=== PATIENT | female | born 1935 | race Caucasian/White ===

== ENCOUNTER → 2016-11-19 | Outpatient (CLI) | payer MEDICARE ==
--- NOTE | 2016-11-19 19:51 | Diagnostic Imaging Report ---
INDICATION: Digital mammogram bilateral screening. This study was compared to the prior exams of 11/07/15, 10/25/14 and 10/12/13. At this time, there are no current complaints. The current study was also evaluated with a Computer Aided Detection (CAD) system. FINDINGS: The fibroglandular tissue in both breasts is heterogeneously dense. This does limit the sensitivity of this exam. Overall, there does not appear to have been any significant change when compared to the prior study. No primary or secondary sign of malignancy is noted. IMPRESSION: There is no radiographic evidence for malignancy. ACR BI-RADS Category 1: Negative. Result letter will be mailed to the patient. Note: At least 10% of breast cancer is not imaged by mammography. Dictated by: Dictated on workstation # [id number]
== END ==
LOC: RAD 09:51
PROVIDERS: ATTEND Internal Medicine
DX: Z12.31 Encounter for screening mammogram for malignant neoplasm of breast (principal)

== ENCOUNTER → 2017-11-25 | Outpatient (CLI) | payer MEDICARE ==
--- NOTE | 2017-11-25 15:58 | Diagnostic Imaging Report ---
Indication: Routine screening. Comparison: Comparison is made with prior exam from 11/19/2016 and 11/07/2015. Findings: Scattered fibroglandular densities are identified in both breasts. The parenchymal pattern is stable. No dominant mass or malignant-appearing microcalcifications are seen. The axillae are unremarkable. Impression: BI-RAD category 1. No mammographic features suspicious for malignancy are identified. ACR BI-RADS Category 1: Negative. Result letter will be mailed to the patient. Note: At least 10% of breast cancer is not imaged by mammography. Dictated by: Dictated on workstation # [id number]
== END ==
LOC: RAD 14:51
PROVIDERS: ATTEND Internal Medicine
DX: Z12.31 Encounter for screening mammogram for malignant neoplasm of breast (principal)
CPT/HCPCS: 77067

== ENCOUNTER → 2018-12-09 | Outpatient (CLI) | payer MEDICARE ==
--- NOTE | 2018-12-09 16:21 | Diagnostic Imaging Report ---
INDICATION: Routine screening. COMPARISON: 11/25/2017 and 11/19/2016. TECHNIQUE: 2D and 3D bilateral screening mammography was performed with CAD. FINDINGS: Scattered fibroglandular densities are identified bilaterally. The parenchymal pattern is stable. No mass or malignant appearing microcalcifications are seen. The axillae are unremarkable. IMPRESSION: No mammographic features suspicious for malignancy are identified. ACR BI-RADS Category 1: Negative. Result letter will be mailed to the patient. Note: At least 10% of breast cancer is not imaged by mammography. Dictated by: Dictated on workstation # [id number]
== END ==
LOC: RAD 12:38
PROVIDERS: ATTEND Internal Medicine
DX: Z12.31 Encounter for screening mammogram for malignant neoplasm of breast (principal)
CPT/HCPCS: 77067

== ENCOUNTER → 2019-12-14 | Outpatient (CLI) | payer MEDICARE ==
--- NOTE | 2019-12-14 11:45 | Diagnostic Imaging Report ---
INDICATION: Screening. The current study was also evaluated with a Computer Aided Detection (CAD) system. 3-D Tomographic imaging was also performed. COMPARISON: Comparison made with prior examinations from 12/09/2018, 11/25/2017, and 11/19/2016. FINDINGS: There are scattered fibroglandular densities bilaterally. There is no dominant mass, spiculated lesion, or suspicious calcification identified. The skin, nipples, and axillae are unremarkable. IMPRESSION: Negative. ACR BI-RADS Category 1: Negative. Result letter will be mailed to the patient. Note: At least 10% of breast cancer is not imaged by mammography. Dictated by: Dictated on workstation # [id number]
== END ==
LOC: RAD 10:36
PROVIDERS: ATTEND Internal Medicine
DX: Z12.31 Encounter for screening mammogram for malignant neoplasm of breast (principal)
CPT/HCPCS: 77067

== ENCOUNTER 2020-10-16 17:16 | Emergency (ER) | payer MEDICARE ==
[~2020-10-16] VITALS: Ht 152 cm; Wt 65.0 kg
--- NOTE | 2020-10-16 17:45 | ED Fall/Injury ---
General Chief Complaint: Trauma-Non Activation Stated Complaint: FALL Nursing Triage Note: MISSED STEP AT HOME AND FELL ON BUTTOCKS. SEE TRIAGE NOTE. Source: patient, EMS History of Present Illness Date Seen by Provider: Oct 16, 2020 Time Seen by Provider: 17:38 Initial Comments 84-year-old female presenting with EMS after missing a step at home and falling back on her buttocks. She states that she had the back of her head and back as well. She does have chronic low back pain anyway. She also has pain in her right hand where she tried to catch herself. She has an abrasion and break in the skin on her right ring finger and has pain in that finger. There is bruising and swelling. She denies any nausea or vomiting. She was able to stand back up after the fall. She has had no numbness or tingling in her legs or arms. She denies any loss of vision or loss of consciousness. She has no drainage from her nose or ears. She denies any shortness of breath. Location Injury Occurred: HOME Allergies and Home Medications Allergies Coded Allergies: codeine (Verified Allergy, Unknown, 10/16/20) morphine (Verified Allergy, Unknown, 10/16/20) Patient Home Medication List Home Medication List Reviewed: Yes Review of Systems Review of Systems Constitutional: No chills, No dizziness, No fever Eyes: Denies Blindness, Denies Blurred Vision, Denies Drainage, Denies Tunnel Vision, Denies Vision Changes Ears, Nose, Mouth, Throat: denies ear pain, denies ear discharge, denies nose discharge, denies epistaxis, denies mouth swelling, denies loose teeth Respiratory: No cough, No short of breath, No stridor Cardiovascular: No chest pain Gastrointestinal: No abdominal pain, No nausea, No vomiting Genitourinary: no symptoms reported Musculoskeletal: back pain (acute on chronic low back pain since falling, thoracic back pain since fall), other (pain and swelling or right ring finger with abrasion since fall) Skin: other (abrasion with bruising to right ring finger) Psychiatric/Neurological: Headache (occiput); Denies Numbness, Denies Paresthesia Past Dxjgwqd-Apkisf-Qwwgbx Hx Past Med/Social Hx: Reviewed Nursing Past Med/Soc Hx Patient Social History Alcohol Use: Denies Use Recreational Drug Use: No Smoking Status: Never a Smoker 2nd Hand Smoke Exposure: No Recent Foreign Travel: No Contact w/Someone Who Travel: No Recent Infectious Disease Expo: No Recent Hopitalizations: No Physical Abuse: No Sexual Abuse: No Mistreated: No Fear: No Seasonal Allergies Seasonal Allergies: No Past Medical History Respiratory: No Cardiac: Yes Hypertension Neurological: No Physical Exam Vital Signs Vital Signs - First Documented 10/16/20 17:33 Temp 36.5 Pulse 71 Resp 16 B/P (MAP) 158/50 (86) Pulse Ox 100 O2 Delivery Room Air Capillary Refill : Less Than 3 Seconds Height, Weight, BMI Height: '" Weight: lbs. oz. kg; 28.00 BMI Method: General Appearance: WD/WN, mild distress HEENT: PERRL/EOMI, pharynx normal, other (no kirkland sign, raccoon sign. No CSF otorrhea, rhinorrhea) Neck: full range of motion, supple Cardiovascular: normal peripheral pulses, regular rate, rhythm Respiratory: chest non-tender, lungs clear, normal breath sounds Gastrointestinal: normal bowel sounds, soft, no pulsatile mass Back: no CVA tenderness, vertebral tenderness (thoracic, lower lumbar and sacral area) Extremities: normal capillary refill, other (pain and swelling with abrasion to right ring finger. 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, alert, oriented x 3 Skin: warm/dry, ecchymosis (right ring finger) Xavier Coma Score Best Eye Response: (4) Open Spontaneously Best Verbal Response: (5) Oriented Best Motor Response: (6) Obeys Commands Xavier Total: 15 Progress/Results/Core Measures Results/Orders My Orders Orders - GREGORY KAUR MD Ketorolac Injection (Toradol Injection) (10/16/20 18:03) Ct Head/Cervical Spine Wo (10/16/20 18:03) Ct Thoracic/Lumbar Spine Wo (10/16/20 18:03) Ct Pelvis Wo (10/16/20 18:03) Hand 3 View Right (10/16/20 18:04) Ed Ortho/Other Supplies Order (10/16/20 19:13) Vital Signs/I&O 10/16/20 10/16/20 17:33 18:09 Temp 36.5 36.5 Pulse 71 Resp 16 B/P (MAP) 158/50 (86) Pulse Ox 100 O2 Delivery Room Air Blood Pressure Mean: 86 Progress Progress Note #1: Progress Note toradol 30 mg IM for pain, ice, CT scan head, cervical, thoracic, lumbar spine and pelvis. hand xray to evaluate the right ring finger Progress Note #2: Progress Note on recheck of patient she reports improved pain after Toradol. I advised her of the fracture of the middle phalanx of right ring finger. The CT scans did not show any acute process other than she had a small fracture of the tip of the Coccyx. Counseled on follow up and return precautions. Advised to try and keep stools soft and regular and take miralax or milk of magnesia to help with stools. pt states she will take tylenol for pain. anything stronger upsets her stomach. She has walker at home if needed. given info for Dr. Ding and Surinder Salgado if needed for follow up. Diagnostic Imaging Diagonstic Imaging: CT Plain Films/CT/US/NM/MRI: c-spine, head Comments NAME: RYAN HEATH [facility] REC#: [id number] PT STATUS: REG ER : 1935 PHYSICIAN: GREGORY KAUR MD ADMIT DATE: 10/16/20/ER FS Draft Date of Exam:10/16/20 CT HEAD/CERVICAL SPINE WO PROCEDURE: CT head and CT cervical spine without contrast. TECHNIQUE: Multiple contiguous axial images were obtained through the brain and cervical spine without the use of intravenous contrast. Sagittal and coronal reformations through the cervical spine were then performed. Auto Exposure Controls were utilized during the CT exam to meet ALARA standards for radiation dose reduction. INDICATION: Head and neck pain after fall. FINDINGS: There is prominence of the ventricles and sulci. There is some chronic microvascular ischemic disease. There is no hydrocephalus. There is no midline shift. There is no mass, hemorrhage or extra-axial fluid collection. Calvarium is intact. The sinuses and mastoid air cells are clear. There is some degenerative scoliosis of the cervical spine. This is right convexity in the lower cervical spine and left in the upper. There is no fracture or traumatic subluxation. The odontoid is intact. The lateral masses are well aligned. The prevertebral soft tissues are within normal limits. The lung apices are clear. IMPRESSION: 1. Atrophy and some chronic microvascular ischemic disease; however, no acute intracranial abnormality. 2. Severe cervical spondylosis and multilevel degenerative disc disease, as described, without acute fracture or traumatic subluxation. Dictated on workstation # [id number] Dict: 10/16/201857 Trans: 10/16/201907 [id number] Interpreted by: MANDIE YBARRA MD Electronically signed by: Diagonstic Imaging: CT Plain Films/CT/US/NM/MRI: other (Thoracic and Lumbar Spine) Comments [facility] [place] NAME: RYAN HEATH [facility] REC#: [id number] PT STATUS: REG ER : 1935 PHYSICIAN: GREGORY KAUR MD ADMIT DATE: 10/16/20/ER FS Signed Date of Exam:10/16/20 CT THORACIC/LUMBAR SPINE WO PROCEDURE: CT thoracic and lumbar spine without contrast. TECHNIQUE: Multiple contiguous axial images were obtained through the thoracic and lumbar spine without the use of intravenous contrast. Sagittal and coronal reformations were then performed. All CT scans use one or more of the following dose optimizing techniques: automated exposure control, MA and/or KvP adjustment based on patient size and exam type or iterative reconstruction. INDICATION: Pain after fall. FINDINGS: CT thoracic spine: Bones are osteopenic. The alignment of the thoracic spine is grossly normal. Vertebral body heights are well maintained. There is no fracture or traumatic subluxation. There is no bony encroachment on the spinal canal. There are diffuse degenerative changes. There is a calcified granuloma in the left upper lobe. There is some chronic interstitial fibrosis in the lung bases as well as a bleb in the left lung base. IMPRESSION: Osteopenia and mild thoracic spondylosis, otherwise unremarkable. CT lumbar spine: There are chronic pars defects at L5 with grade 2 spondylolisthesis of L5 on S1. There is multilevel degenerative disc disease. The vertebral body heights are well maintained. There is lower lumbar hypertrophic degenerative facet disease. There is no other acute fracture or traumatic subluxation. The abdominal aorta is nonaneurysmal. There is a 4 mm nonobstructing stone in the right kidney. IMPRESSION: 1. 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 2. Otherwise moderate lumbar spondylosis without acute fracture 3. 4 mm nonobstructing right renal calculus. Dictated by: Dictated on workstation # [id number] Dict: 10/16/201907 Trans: 10/16/201934 [facility] [phone] Interpreted by: MANDIE YBARRA MD Electronically signed by: MANDIE YBARRA MD 10/16/201934 Diagonstic Imaging: CT Plain Films/CT/US/NM/MRI: pelvis Comments [facility] [place] [facility] [id number] PT STATUS: REG ER : 1935 PHYSICIAN: GREGORY KAUR MD ADMIT DATE: 10/16/20/ER FS Signed Date of Exam:10/16/20 CT PELVIS WO PROCEDURE: CT pelvis without contrast. TECHNIQUE: Multiple contiguous axial images were obtained through the pelvis without the use of intravenous contrast. Sagittal and coronal reformations were performed. Auto Exposure Controls were utilized during the CT exam to meet ALARA standards for radiation dose reduction. INDICATION: Pain after fall. FINDINGS: There is a slightly displaced fracture through the coccyx. There is bilateral spondylolysis at L5 with grade 2 spondylolisthesis. There is no other fracture or dislocation. Proximal femurs are intact. There is no focal soft tissue abnormality. IMPRESSION: 1. Slightly displaced fracture through the distal coccyx. The distal fragments are displaced anteriorly. 2. Bilateral spondylolysis at L5 which appears chronic with grade 2 spondylolisthesis. 3. No other fracture or dislocation. Dictated by: Dictated on workstation # [id number] Dict: 10/16/201906 Trans: 10/16/201934 [facility] [id number] Interpreted by: MANDIE YBARRA MD Electronically signed by: MANDIE YBARRA MD 10/16/201934 Diagonstic Imaging: Xray Plain Films/CT/US/NM/MRI: hand Comments [facility] [place] [place] NAME: RYAN HEATH [facility] REC#: [id number] PT STATUS: REG ER : 1935 PHYSICIAN: GREGORY KAUR MD ADMIT DATE: 10/16/20/ER FS Signed Date of Exam:10/16/20 HAND 3 VIEW RIGHT INDICATION: Pain after fall to distal right ring finger. FINDINGS: There is a minimally displaced fracture involving the diaphysis of the middle phalanx of the right 4th finger. There is marked degenerative changes of the DIP and PIP joints. Bones are osteopenic. There is no other fracture or dislocation. IMPRESSION: 1. Comminuted minimally displaced fracture involving the diaphysis of the middle phalanx of the right 4th finger. 2. Osteopenia and diffuse degenerative change, particularly in the DIP and to a lesser degree PIP joints. Dictated by: Dictated on workstation # [id number] Dict: 10/16/201910 Trans: 10/16/201934 [facility] [id number] Interpreted by: MANDIE YBARRA MD Electronically signed by: MANDIE YBARRA MD 10/16/201934 Departure Impression Primary Impression: Displaced fracture of middle phalanx of right ring finger, initial encounter for closed fracture Additional Impressions: Fracture of coccyx, initial encounter for closed fracture Fall at home Qualified Codes: W19.XXXA - Unspecified fall, initial encounter; Y92.009 - Unspecified place in unspecified non-institutional (private) residence as the place of occurrence of the external cause Contusion of scalp, initial encounter Abrasion of right ring finger, initial encounter Disposition: 01 HOME, SELF-CARE Condition: Stable Departure-Patient Inst. Decision time for Depature: 19:44 Referrals: LAURA AARON MD (PCP/Family) Primary Care Physician JAMES DING MD Patient Instructions: Finger Fracture ED, Coccyx Fracture (DC), Abrasions ED, Minor Contusion ED, Preventing Falls in the Older Adult Add. Discharge Instructions: Use ice 20-30 minutes every few hours as needed for your finger, tailbone and head to help with pain, bruising, inflammation and swelling. Elevate your hand above heart level when you can to help with bruising, swelling and pain. Use splint and bethany taping to middle finger to help support the ring finger and the fracture of your finger as it heals. If you are having a lot of pain when walking you can use a walker for weight bearing as tolerated to help you walk. If still having pain or more problems then you can follow up with Dr. Aaron or with Orthopedics, Dr. Ding or his assistant department manager AMIRA Salgado. You may call to make an appointment with AMIRA Salgado here in [place] at [facility] by calling [phone] All discharge instructions reviewed with patient and/or family. Voiced understanding. GREGORY KAUR MD Oct 16, 2020 17:44
[2020-10-16] MEDS ORDERED: KETOROLAC 30 MG/ML VIAL IM STA (18:03)
--- NOTE | 2020-10-16 19:08 | Diagnostic Imaging Report ---
PROCEDURE: CT head and CT cervical spine without contrast. TECHNIQUE: Multiple contiguous axial images were obtained through the brain and cervical spine without the use of intravenous contrast. Sagittal and coronal reformations through the cervical spine were then performed. Auto Exposure Controls were utilized during the CT exam to meet ALARA standards for radiation dose reduction. INDICATION: Head and neck pain after fall. FINDINGS: There is prominence of the ventricles and sulci. There is some chronic microvascular ischemic disease. There is no hydrocephalus. There is no midline shift. There is no mass, hemorrhage or extra-axial fluid collection. Calvarium is intact. The sinuses and mastoid air cells are clear. There is some degenerative scoliosis of the cervical spine. This is right convexity in the lower cervical spine and left in the upper. There is no fracture or traumatic subluxation. The odontoid is intact. The lateral masses are well aligned. The prevertebral soft tissues are within normal limits. The lung apices are clear. IMPRESSION: 1. Atrophy and some chronic microvascular ischemic disease; however, no acute intracranial abnormality. 2. Severe cervical spondylosis and multilevel degenerative disc disease, as described, without acute fracture or traumatic subluxation. Dictated by: Dictated on workstation # [id number]
--- NOTE | 2020-10-16 19:18 | Diagnostic Imaging Report ---
PROCEDURE: CT pelvis without contrast. TECHNIQUE: Multiple contiguous axial images were obtained through the pelvis without the use of intravenous contrast. Sagittal and coronal reformations were performed. Auto Exposure Controls were utilized during the CT exam to meet ALARA standards for radiation dose reduction. INDICATION: Pain after fall. FINDINGS: There is a slightly displaced fracture through the coccyx. There is bilateral spondylolysis at L5 with grade 2 spondylolisthesis. There is no other fracture or dislocation. Proximal femurs are intact. There is no focal soft tissue abnormality. IMPRESSION: 1. Slightly displaced fracture through the distal coccyx. The distal fragments are displaced anteriorly. 2. Bilateral spondylolysis at L5 which appears chronic with grade 2 spondylolisthesis. 3. No other fracture or dislocation. Dictated by: Dictated on workstation # [id number]
--- NOTE | 2020-10-16 19:23 | Diagnostic Imaging Report ---
PROCEDURE: CT thoracic and lumbar spine without contrast. TECHNIQUE: Multiple contiguous axial images were obtained through the thoracic and lumbar spine without the use of intravenous contrast. Sagittal and coronal reformations were then performed. All CT scans use one or more of the following dose optimizing techniques: automated exposure control, MA and/or KvP adjustment based on patient size and exam type or iterative reconstruction. INDICATION: Pain after fall. FINDINGS: CT thoracic spine: Bones are osteopenic. The alignment of the thoracic spine is grossly normal. Vertebral body heights are well maintained. There is no fracture or traumatic subluxation. There is no bony encroachment on the spinal canal. There are diffuse degenerative changes. There is a calcified granuloma in the left upper lobe. There is some chronic interstitial fibrosis in the lung bases as well as a bleb in the left lung base. IMPRESSION: Osteopenia and mild thoracic spondylosis, otherwise unremarkable. CT lumbar spine: There are chronic pars defects at L5 with grade 2 spondylolisthesis of L5 on S1. There is multilevel degenerative disc disease. The vertebral body heights are well maintained. There is lower lumbar hypertrophic degenerative facet disease. There is no other acute fracture or traumatic subluxation. The abdominal aorta is nonaneurysmal. There is a 4 mm nonobstructing stone in the right kidney. IMPRESSION: 1. 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 2. Otherwise moderate lumbar spondylosis without acute fracture 3. 4 mm nonobstructing right renal calculus. Dictated by: Dictated on workstation # [id number]
--- NOTE | 2020-10-16 19:26 | Diagnostic Imaging Report ---
INDICATION: Pain after fall to distal right ring finger. FINDINGS: There is a minimally displaced fracture involving the diaphysis of the middle phalanx of the right 4th finger. There is marked degenerative changes of the DIP and PIP joints. Bones are osteopenic. There is no other fracture or dislocation. IMPRESSION: 1. Comminuted minimally displaced fracture involving the diaphysis of the middle phalanx of the right 4th finger. 2. Osteopenia and diffuse degenerative change, particularly in the DIP and to a lesser degree PIP joints. Dictated by: Dictated on workstation # [id number]
[2020-10-16 19:46] VITALS: BP 160/49
== END 2020-10-16 19:47 | disposition home or self-care (01) ==
LOC: EDUNIT# 17:16 → ER FS 17:17
DX: S62.624A Displaced fracture of middle phalanx of right ring finger, initial encounter for closed fracture (principal); S32.2XXA Fracture of coccyx, initial encounter for closed fracture; S00.03XA Contusion of scalp, initial encounter; R40.2410 Glasgow coma scale score 13-15, unspecified time; Z88.5 Allergy status to narcotic agent; W10.9XXA Fall (on) (from) unspecified stairs and steps, initial encounter; Y92.009 Unspecified place in unspecified non-institutional (private) residence as the place of occurrence of the external cause
CPT/HCPCS: 29130; 70450; 72125; 72128; 72131; 72192; 73130

== ENCOUNTER → 2021-01-17 | Outpatient (CLI) | payer MEDICARE ==
--- NOTE | 2021-01-17 11:41 | Diagnostic Imaging Report ---
INDICATION: Routine screening. Comparison is made with prior mammogram 12/14/2019 and 12/09/2018. 2-D and 3-D bilateral screening mammography was performed with CAD. Scattered fibroglandular densities are identified bilaterally. No mass or malignant appearing microcalcifications are seen. Axillae are unremarkable. IMPRESSION: BI-RADS Category 1 No mammographic features suspicious for malignancy are identified. ACR BI-RADS Category 1: Negative. Result letter will be mailed to the patient. Note: At least 10% of breast cancer is not imaged by mammography. Dictated by: Dictated on workstation # [id number]
== END ==
LOC: RAD 10:56
PROVIDERS: ATTEND Internal Medicine
DX: Z12.31 Encounter for screening mammogram for malignant neoplasm of breast (principal)
CPT/HCPCS: 77063; 77067

== ENCOUNTER → 2021-08-24 | Outpatient (CLI) | payer MEDICARE ==
--- NOTE | 2021-08-24 14:06 | Diagnostic Imaging Report ---
EXAMINATION: Right knee at 1:28 p.m. INDICATION: Knee pain. Three views were obtained. There are no prior studies available for comparison. FINDINGS: There is no fracture, dislocation, or acute bony abnormality evident. The knee joint is fairly well maintained. The soft tissues are unremarkable. There is no sign of a joint effusion. IMPRESSION: There is no evidence for an acute bony abnormality. Dictated by: Dictated on workstation # [id number]
== END ==
LOC: RAD FS 13:14
PROVIDERS: ATTEND Nurse Practitioner
DX: M25.561 Pain in right knee (principal)
CPT/HCPCS: 73562

== ENCOUNTER → 2022-11-06 | Outpatient (CLI) | payer MEDICARE ==
--- NOTE | 2022-11-06 17:07 | Diagnostic Imaging Report ---
INDICATION: Fall, pain. COMPARISON: Imaging from this same date as well as from 10/16/2020. TECHNIQUE: Three radiographs of the facial bones dated 11/06/2022. FINDINGS: No acute depressed calvarial fracture. Orbital rims appear intact. Nasal septum is midline. The visualized paranasal sinuses are clear. No acute facial fracture is identified. No suspicious radiopaque foreign body. Multiple teeth are absent. Dental amalgam is in place. Partial fusion of the mid to lower cervical spine is again identified. IMPRESSION: No acute facial fracture with multiple teeth noted to be absent, particularly involving the maxilla. See separately dictated radiographs of the cervical spine from this same date for findings within the cervical spine itself. Dictated by: Dictated on workstation # [id number]
--- NOTE | 2022-11-06 17:08 | Diagnostic Imaging Report ---
INDICATION: Fall, pain. COMPARISON: 10/16/2020. TECHNIQUE: Four radiographs of the cervical spine dated 11/06/2022. FINDINGS: [place] right curvature of the cervicothoracic spine. 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 This appears similar to the prior CT. Chronic appearing vertebral body height loss with advanced endplate degenerative changes again noted involving C4 and C5. Predental space is unremarkable. The lateral masses appear well seated. The dens is partially obscured though visualized portions appear intact. Advanced disc space height loss throughout the majority of the cervical spine is again seen with scattered facet joint degenerative changes present. Surgical clips are seen overlying the right aspect of the superior mediastinum. Prevertebral soft tissues are unremarkable. IMPRESSION: [place] right curvature of the cervicothoracic spine with advanced multilevel degenerative changes and partial fusion of C6 through T1 again noted without acute osseous abnormality. Dictated by: Dictated on workstation # [id number]
== END ==
LOC: RAD 10:56
PROVIDERS: ATTEND Nurse Practitioner Family
DX: M47.813 Spondylosis without myelopathy or radiculopathy, cervicothoracic region (principal); Z98.1 Arthrodesis status
CPT/HCPCS: 70150; 72040

== ENCOUNTER 2023-01-23 13:32 | Outpatient (RCR) | payer MEDICARE | END 2023-01-25 | disposition home or self-care (01) | PROVIDERS: ATTEND Nurse Practitioner Family | DX: Q05.9 Spina bifida, unspecified (principal); I10 Essential (primary) hypertension ==

== ENCOUNTER 2023-02-22 08:39 | Outpatient (RCR) | payer MEDICARE | END 2023-02-24 | disposition home or self-care (01) | PROVIDERS: ATTEND Nurse Practitioner Family | DX: Q05.9 Spina bifida, unspecified (principal); M25.551 Pain in right hip; M25.561 Pain in right knee; M54.50 Low back pain, unspecified; R53.1 Weakness; I10 Essential (primary) hypertension ==

== ENCOUNTER 2023-03-19 10:38 | Outpatient (RCR) | payer MEDICARE | END 2023-03-27 | disposition home or self-care (01) | PROVIDERS: ATTEND Nurse Practitioner Family | DX: Q05.9 Spina bifida, unspecified (principal); M25.551 Pain in right hip; M25.561 Pain in right knee; M54.50 Low back pain, unspecified; R53.1 Weakness; I10 Essential (primary) hypertension ==

== ENCOUNTER 2023-04-16 09:50 | Outpatient (RCR) | payer MEDICARE | END 2023-04-26 | disposition home or self-care (01) | PROVIDERS: ATTEND Nurse Practitioner Family | DX: Q05.9 Spina bifida, unspecified (principal); M25.551 Pain in right hip; M25.561 Pain in right knee; M54.50 Low back pain, unspecified; R53.1 Weakness; I10 Essential (primary) hypertension ==

== ENCOUNTER 2023-05-23 10:59 | Outpatient (RCR) | payer MEDICARE | END 2023-05-27 | disposition home or self-care (01) | PROVIDERS: ATTEND Nurse Practitioner Family | DX: Q05.9 Spina bifida, unspecified (principal); M25.551 Pain in right hip; M25.561 Pain in right knee ==

== ENCOUNTER 2023-06-25 10:25 | Outpatient (RCR) | payer MEDICARE | END 2023-06-27 | disposition home or self-care (01) | PROVIDERS: ATTEND Nurse Practitioner Family | DX: Q05.9 Spina bifida, unspecified (principal); M25.551 Pain in right hip; M25.561 Pain in right knee; M54.50 Low back pain, unspecified ==

== ENCOUNTER → 2023-08-13 | Outpatient (CLI) | payer MEDICARE ==
--- NOTE | 2023-08-13 12:35 | Diagnostic Imaging Report ---
KNEE, RIGHT, 3 VIEWS COMPARISON: None available. INDICATION: Knee trauma TECHNIQUE: Non-weight bearing AP, oblique, and lateral views of the right knee. FINDINGS: No fracture or traumatic malalignment. Degenerative arthritis in the medial compartment. No knee joint effusion. IMPRESSION: No acute fracture about the right knee. Dictated by: Dictated on workstation # [id number]
--- NOTE | 2023-08-13 12:37 | Diagnostic Imaging Report ---
FEMUR, RIGHT, 2 VIEWS INDICATION: Right leg pain after trauma. COMPARISON: None available. TECHNIQUE: Two views of the right femur. FINDINGS: No fracture. No periosteal reaction or endosteal scalloping. No features of avascular necrosis in the femoral head. IMPRESSION: No fracture within the right femur. Dictated by: Dictated on workstation # [id number]
== END ==
LOC: RAD 11:39
PROVIDERS: ATTEND Nurse Practitioner Family
DX: M25.561 Pain in right knee (principal)
CPT/HCPCS: 73552; 73562